=== PATIENT | male | born 1945 | race Caucasian/White ===

== ENCOUNTER 2020-08-10 08:39 | Observation (INO) ==
[2020-08-10] MEDS ORDERED: IOPAMIDOL 100 ML BOTTLE IV ONE (08:40)
[2020-08-10] MEDS ORDERED: PANTOPRAZOLE 40 MG VIAL IV ONE (08:47)
[2020-08-10] MEDS ORDERED: ONDANSETRON 4 MG/2 ML VIAL IV ONE (08:47)
[2020-08-10] MEDS ORDERED: 0.9 % SODIUM CHLORIDE 1,000 ML IV ONE ×2 (08:47→11:29)
--- NOTE | 2020-08-10 08:52 | Emergency Department Note ---
Nausea/Vomiting/Diarrhea HPI General Chief complaint: Nausea/Vomiting/Diarrhea Stated complaint: blood in vomit, nausea/vomiting Time Seen by Provider: 08/10/20 08:42 Source: patient Mode of arrival: ambulatory Limitations: no limitations History of Present Illness HPI Narrative: 75-year-old male presents by private vehicle chief complaint vomiting and diarrhea onset last night. He has had some blood in his emesis. Diarrhea has been watery and brown. Denies any black or bloody stools. He has significant discomfort in his upper abdomen. Denies chest pain denies any acute shortness of breath. Patient states he always feels somewhat short of breath. Patient is morbidly obese. Denies any blood thinners except for aspirin. Is also on medicine for hypertension hyperlipidemia and hypothyroidism. Related Data Home Medications Medication Instructions Recorded Confirmed CO Q-10 1 tab PO DAILY 05/22/19 08/10/20 Fish Oil Cap 2 cap PO BID 05/22/19 08/10/20 aspirin [Adult Low Dose Aspirin] 81 mg PO QDAY 12/04/19 08/10/20 Previous Rx's Medication Instructions Recorded colchicine 0.6 mg tablet 0.6 mg PO QDAY #20 tab 02/14/20 levothyroxine 25 mcg tablet 25 mcg PO DAILY #90 tab 04/22/20 losartan 100 1 tab PO QDAY #90 tab 04/22/20 mg-hydrochlorothiazide 12.5 mg tablet simvastatin 40 mg tablet 40 mg PO QDAY #90 tab 04/22/20 Allergies Allergy/AdvReac Type Severity Reaction Status Date / Time allopurinol Allergy Severe Rash Verified 08/10/20 08:42 Review of Systems ROS ROS Narrative: Narrative: All systems ED: reviewed and negative except as stated. Constitutional: Denies fever, chills and sweats Eyes: Denies vision change Cardiovascular: Denies chest pain Respiratory: Reports shortness of breath (Chronic) Gastrointestinal: Reports abdominal pain, vomiting, diarrhea and hematemesis Genitourinary: Denies dysuria, frequency, urgency and hematuria Musculoskeletal: Denies back pain and joint pain Integumentary: Denies rash Neurological: Denies headache and dizziness Psychiatric: Denies anxiety, suicidal thoughts and homicidal thoughts Endocrine: Denies polydipsia and polyuria Hematological/Lymphatic: Denies easy bleeding and easy bruising PFSH Narrative Patient History Narrative: Narrative: Medical/Surgical/Family History All Active Problems (Updated 08/10/20 @ 11:38 by Zhao Alvarez MD) Abdominal pain, vomiting, and diarrhea (Acute) Hematemesis (Acute) Acute dehydration (Acute) Pseudophakia (Chronic) Blepharitis (Chronic) Routine eye exam (Chronic ~09/16/16) Melanoma (Chronic ~01/2009) Perianal abscess (Chronic ~12/2007) Diverticulosis (Chronic) Hyperplastic colon polyp (Chronic) Hypothyroidism (Chronic) Hyperlipidemia (Chronic) Colon polyps (Chronic) Neoplasm of uncertain behavior of skin (Chronic) Abscess of anal and rectal regions (Chronic) Erectile dysfunction (Chronic) Diverticulosis of colon (Chronic) Malignant neoplasm of prostate (Chronic) Hypertension (Chronic) Encounter for preventative adult health care examination (Chronic) Idiopathic gout, left ankle and foot (Chronic) Constipation (Chronic) Urinary retention (Chronic) Urinary retention with incomplete bladder emptying (Chronic) Medical History (Updated 08/10/20 @ 11:38 by Zhao Alvarez MD) Abscess of anal and rectal regions Blepharitis Colon polyps Constipation Diverticulosis Diverticulosis of colon Encounter for preventative adult health care examination Erectile dysfunction Hyperlipidemia Hyperplastic colon polyp Hypertension Hypothyroidism Idiopathic gout, left ankle and foot Malignant neoplasm of prostate Melanoma (~01/2009) Left frontal Neoplasm of uncertain behavior of skin Perianal abscess (~12/2007) Pseudophakia Routine eye exam (~09/16/16) [facility] - Dr. Esposito - Return in 1 year for comprehensive dilated eye. Urinary retention Urinary retention with incomplete bladder emptying Surgical History History of colonoscopy (~08/2014) Diverticulosis noted. Hyperplastic polyps. Repeat in 2019 History of cystoscopy (~12/09/14) With dilation of bladder neck contracture. History of robot-assisted laparoscopic radical prostatectomy (~11/03/14) Dr. Samuel History of surgery Left Leg History of ventral hernia repair Social History Smoking Status: Former smoker Alcohol Intake Frequency: holiday/special occasion only Substance Use: does not use Exam Narrative Narrative: Constitutional: Awake alert no acute distress well-nourished well- developed HEENT: Normocephalic, atraumatic PERRLA, EOMI, oral mucosa moist, pharynx clear, Neck: Supple, no lymphadenopathy, no JVD Lungs: Breathing unlabored, lungs clear Cardiac: Regular rate and rhythm, normal distal pulses, GI: Soft epigastric tenderness nondistended no guarding no rebound Musculoskeletal: No tenderness, no deformities, no edema, full range of motion Neuro: Awake alert, cranial nerves II through XII grossly intact, no focal motor or sensory deficits Psychiatric: Normal mood and affect Skin: Warm dry no rash, cap refill less than 2 seconds General Limitations: no limitations Course Reevaluation(s) Reevaluation #1: Feels little better still nauseated. Still some epigastric discomfort. Discussed all ED findings and recommendation for observation the hospital patient is agreeable. Time: 11:35 Reevaluation #2: Discussed recommendations from stock shipper and hospitalist the patient states he vomited bright red blood on 3 separate occasions and would prefer to be observed in the hospital. Still feels little bit nauseated. Time: 12:28 Consultations Consultation #1: Case discussed with gastroenterology on-call, Dr. Melgoza, who feels patient likely had a gastroenteritis with some irritation and hematemesis and there is nothing to suggest the significant upper GI bleed at this point. Patient has normal hemoglobin. He recommended observation fluids checking stool studies and admission by the hospitalist. He would be agreeable to see the patient in consultation. Time: 11:57 Consultation #2: Case discussed with hospitalist, Dr. Sexton, who feels the patient can be discharged home and follow-up as an outpatient as long he is feeling better after second liter of fluids. Time: 13:16 Consultation #3: Discussed with hospitalist Dr. Sexton who agrees to come see the patient in the emergency department and discussed observation with the patient the patient does not feel comfortable going home at this time. Vital Signs Vital signs: Vital Signs Temperature 98.9 F 08/10/20 08:40 Pulse Rate 99 H 08/10/20 08:40 Respiratory Rate 24 H 08/10/20 08:40 Blood Pressure 149/82 08/10/20 08:40 Pulse Oximetry (%) 92 08/10/20 08:40 Temperature 98.9 F 08/10/20 08:40 Pulse Rate 90 08/10/20 13:02 Respiratory Rate 23 H 08/10/20 13:02 Blood Pressure 106/62 08/10/20 13:02 Pulse Oximetry (%) 96 08/10/20 13:02 [facility] MDM Narrative Medical decision making narrative: Narrative: Differential Diagnosis Differential Diagnosis: gastroenteritis GI bleed, colitis, dehydration, bowel obstruction Lab Data Result diagrams: 08/10/20 08:50 08/10/20 08:50 Labs: Lab Results 08/10/20 08/10/20 08/10/20 Range/Units 08:50 08:50 08:50 WBC 17.8 H (4.5-11.0) K/mcL RBC 5.35 (4.50-5.90) M/mcL Hgb 17.1 H (13.5-16.5) g/dL Hct 51.6 (41.0-55.0) % MCV 96.4 (80.0-100.0) fL MCH 32.0 (26.0-34.0) pg MCHC 33.1 (31.0-36.0) g/dL RDW 12.8 (11.5-14.5) % Plt Count 318 (140-440) K/mcL MPV 9.8 (7.4-10.4) fL Seg Neutrophils % 80 H (38-78) % Band Neutrophils % 7 (0-10) % Lymphocytes % 3 L (15-49) % Monocytes % (Manual) 8 (1-12) % Eosinophils % (Manual) 1 (0-7) % Myelocytes % 1 % Platelet Estimate Normal (Normal) RBC Morphology Normal (Normal) PT 13.0 (11.9-14.5) sec INR 0.9 (0.9-1.1) Sodium 138 (133-145) mmol/L Potassium 3.9 (3.3-5.1) mmol/L Chloride 102 (96-108) mmol/L Carbon Dioxide 18 L (22-30) mmol/L Anion Gap 18.0 H (8.0-16.0) BUN 30 H (8-23) mg/dL Creatinine 1.4 H (0.7-1.2) mg/dL POC Creatinine 1.3 H (0.6-1.2) mg/dL GFR Calculation 48 Glucose 153 H (70-105) mg/dL Calcium 8.9 (8.6-10.4) mg/dL Total Bilirubin 0.6 (0.1-1.0) mg/dL AST 18 (<40) U/L ALT 21 (<40) U/L Alkaline Phosphatase 91 (39-117) U/L Troponin T (<0.03) ng/mL NT-Pro-B Natriuret Pep 143.2 (<450.0) pg/mL Total Protein 7.1 (5.9-8.4) gm/dL Albumin 4.1 (3.2-5.2) gm/dL Globulin 3.0 (2.2-3.7) gm/dL Albumin/Globulin Ratio 1.4 (1.0-2.3) Lipase 31 (7-60) U/L 08/10/20 Range/Units 08:50 WBC (4.5-11.0) K/mcL RBC (4.50-5.90) M/mcL Hgb (13.5-16.5) g/dL Hct (41.0-55.0) % MCV (80.0-100.0) fL MCH (26.0-34.0) pg MCHC (31.0-36.0) g/dL RDW (11.5-14.5) % Plt Count (140-440) K/mcL MPV (7.4-10.4) fL Seg Neutrophils % (38-78) % Band Neutrophils % (0-10) % Lymphocytes % (15-49) % Monocytes % (Manual) (1-12) % Eosinophils % (Manual) (0-7) % Myelocytes % % Platelet Estimate (Normal) RBC Morphology (Normal) PT (11.9-14.5) sec INR (0.9-1.1) Sodium (133-145) mmol/L Potassium (3.3-5.1) mmol/L Chloride (96-108) mmol/L Carbon Dioxide (22-30) mmol/L Anion Gap (8.0-16.0) BUN (8-23) mg/dL Creatinine (0.7-1.2) mg/dL POC Creatinine (0.6-1.2) mg/dL GFR Calculation Glucose (70-105) mg/dL Calcium (8.6-10.4) mg/dL Total Bilirubin (0.1-1.0) mg/dL AST (<40) U/L ALT (<40) U/L Alkaline Phosphatase (39-117) U/L Troponin T < 0.01 (<0.03) ng/mL NT-Pro-B Natriuret Pep (<450.0) pg/mL Total Protein (5.9-8.4) gm/dL Albumin (3.2-5.2) gm/dL Globulin (2.2-3.7) gm/dL Albumin/Globulin Ratio (1.0-2.3) Lipase (7-60) U/L ED POC Tests ED POC Tests: KULDEEP - SARS Antigen Negative Radiology Data Radiology results reviewed: Yes I reviewed the patient's radiology results. Radiology results narrative: IMPRESSION: 1. No cause identified for GI blood loss. 2. 10 cm lobulated periumbilical hernia consisting only mesenteric fat. Small amount of edema seen in the inferior aspect of the hernia. Moderate left and small right inguinal hernias pain only mesenteric fat 3. Few sigmoid diverticuli, but no evidence of diverticulitis 4. Mild pancreatic atrophy in the head, neck and proximal body region. Interpreted and Authenticated by: Milo Lujan 08/10/20 Chest x-ray interpreted by radiologist showed no acute process EKG Data EKG #1: EKG attestation: Yes I reviewed and interpreted this EKG. and Yes There are no EKG findings of acute coronary syndrome EKG results narrative: EKG performed at 856 shows sinus rhythm rate 95 left axis deviation inferior Q waves normal intervals no ectopy nonspecific ST changes Discharge Plan Patient/Caregiver Discharge Instructions Pt seen by SECURITY PATROL OFFICER/PA only: No Clinical Impression: Abdominal pain, vomiting, and diarrhea, Hematemesis, Acute dehydration Patient Disposition: Xfer As Outpt/Obs ([facility]) Condition: Fair Follow up with: Alejandro Zimmerman MD [Primary Care Provider] - Prescriptions: No Action Fish Oil Cap 2 cap PO BID RF: 0 CO Q-10 1 tab PO DAILY RF: 0 colchicine [Colcrys] 0.6 mg tablet 0.6 mg PO QDAY Qty: 20 RF: 5 levothyroxine 25 mcg tablet 25 mcg PO DAILY Qty: 90 RF: 4 losartan-hydrochlorothiazide 100-12.5 mg tablet 1 tab PO QDAY Qty: 90 RF: 4 simvastatin 40 mg tablet 40 mg PO QDAY Qty: 90 RF: 4 aspirin [Adult Low Dose Aspirin] 81 mg Tablet,Delayed Release (Dr/Ec) 81 mg PO QDAY RF: 0
[2020-08-10 09:07] LABS: POC Creatinine 1.3 mg/dL (0.6-1.2)
[2020-08-10 09:36] LABS: Hematocrit 51.6 % (41.0-55.0); Hemoglobin 17.1 g/dL (13.5-16.5); Mean Cell Volume 96.4 fL (80.0-100.0); Mean Corpuscular HGB Conc 33.1 g/dL (31.0-36.0); Mean Platelet Volume 9.8 fL (7.4-10.4); Platelet Count 318 K/mcL (140-440); RBC 5.35 M/mcL (4.50-5.90); Red Cell Distribution Width 12.8 % (11.5-14.5); WBC 17.8 K/mcL (4.5-11.0)
[2020-08-10 09:55] LABS: INR 0.9 (0.9-1.1)
[2020-08-10 10:01] LABS: proBNP 143.2 pg/mL (<450.0)
[2020-08-10 10:21] LABS: ALT/SGPT 21 U/L (<40); AST/SGOT 18 U/L (<40); Albumin 4.1 gm/dL (3.2-5.2); Albumin/Globulin Ratio 1.4 (1.0-2.3); Alkaline Phosphatase 91 U/L (39-117); Bilirubin,Total 0.6 mg/dL (0.1-1.0); Blood Urea Nitrogen 30 mg/dL (8-23); Calcium 8.9 mg/dL (8.6-10.4); Carbon Dioxide 18 mmol/L (22-30); Chloride 102 mmol/L (96-108); Glomerular Filtration Rate 48; Glucose 153 mg/dL (70-105)
[2020-08-10 10:43] LABS: Band Neutrophils % 7 % (0-10); Eosinophils % (Manual) 1 % (0-7); Lymphocytes % 3 % (15-49); Monocytes % (Manual) 8 % (1-12); Myelocytes % 1 %; Platelet Estimate NORMAL (Normal); RBC Morphology NORMAL (Normal); Segmented Neutrophils % 80 % (38-78)
--- NOTE | 2020-08-10 11:03 | XRay Report ---
CLINICAL INFORMATION: dyspnea COMPARISON: None. FINDINGS: The heart is mildly enlarged. Mediastinum and pulmonary vessels are unremarkable. Prominent fat pad seen in the cardiac apex region lungs are clear. No effusion IMPRESSION: Negative Interpreted and Authenticated by: Milo Lujan 08/10/20
--- NOTE | 2020-08-10 11:03 | Cat Scan Report ---
CLINICAL INFORMATION: Abdominal pain and vomiting blood COMPARISON: Pelvic CT 05/26/2008 TECHNIQUE: Following enteric contrast, 80 cc of Isovue-370 were injected intravenously, and 60 seconds later, 0.625 mm helical slices were obtained from the mid heart through the subtrochanteric regions. Following reconstruction, 2.5 mm sagittal, coronal and axial reformatted images were processed and reviewed at bone, lung and soft tissue windows. Five minutes later, 0.625 mm helical slices were obtained from the mid heart through the kidneys and viewed at soft tissue windows.The exam was performed using radiation dose optimization techniques including, but not limited to, automated exposure control, adjustment of the mA and/or kV according to patient size and use of iterative reconstruction technique. FINDINGS: Lung bases show a tiny 2 mm nodule in the medial basilar segment right lower lobe on image 14. It should be considered insignificant. There is minimal scattered scarring and/or atelectasis. There are no effusions. The visualized heart is grossly normal in size. Abdominal images show the gallbladder and bile ducts, liver, both adrenal glands, spleen and aorta are normal in size configuration and attenuation without focal lesion. There is mild pancreatic atrophy with parenchymal fat replacement-particularly in the head neck and proximal body. Simple parapelvic cysts are seen in both kidneys-no significant renal abnormality. There is no free air, free fluid or adenopathy Pelvic images show prostatectomy changes. The urinary bladder is unremarkable. Few sigmoid diverticuli appreciated no evidence of diverticulitis. The remaining colon, appendix small bowel and stomach are normal. No cause identified for GI bleeding on the basis of this particular study. 10 cm multilobulated periumbilical hernia, consisting only mesenteric fat, is appreciated. There is a small amount of edema in the peripheral aspect of the hernia sac inferiorly. Moderate left and small right inguinal hernias containing only fat. Bone windows show no focal osseous abnormality. IMPRESSION: 1. No cause identified for GI blood loss. 2. 10 cm lobulated periumbilical hernia consisting only mesenteric fat. Small amount of edema seen in the inferior aspect of the hernia. Moderate left and small right inguinal hernias pain only mesenteric fat 3. Few sigmoid diverticuli, but no evidence of diverticulitis 4. Mild pancreatic atrophy in the head, neck and proximal body region. Interpreted and Authenticated by: Milo Lujan 08/10/20
--- NOTE | 2020-08-10 13:35 | Internal Med History&Physical ---
HPI History of Present Illness Patient information: Note initiated : 08/10/20 at 1:28 pm Service Date, if different from initiated Date: [] Patient: Lev Strong a 75 y/o M admitted on for Blood In Vomit, N/V. Chief Complaint: [] History of present illness: Mr. Strong is a 75 year old M Patient presents the ED with nausea vomiting diarrhea. Patient had leg of araiza last night and feels he had some indigestion in his stomach but otherwise was not too concerned. However around 130 when he got up to go to bed he started to feel ill start have nausea vomiting and had multiple episodes through the morning and started to have diarrhea as well his emesis became bright red blood. In the ED he was evaluated he had hemoglobin of 17 and it appeared to be dry. Had a leukocytosis but was afebrile. Case was discussed with machine pecan picker Dr. Bender who felt it was inflammation from gastroenteritis did not have any acute concerns and felt the patient did not need any endoscopy evaluation. Patient concerned about going home given the severity of his symptoms last night and desired to stay as an observation patient. Patient also describes pyrosis. Review of Systems: Pertinent positives as above. Denies headache/fever/chills/chest or abdominal pain/cough/dyspnea/. System reviewed negative PFSH PFSH All Active Problems (Updated 08/10/20 @ 11:38 by Zhao Alvarez MD) Abdominal pain, vomiting, and diarrhea (Acute) Hematemesis (Acute) Acute dehydration (Acute) Pseudophakia (Chronic) Blepharitis (Chronic) Routine eye exam (Chronic ~09/16/16) Melanoma (Chronic ~01/2009) Perianal abscess (Chronic ~12/2007) Diverticulosis (Chronic) Hyperplastic colon polyp (Chronic) Hypothyroidism (Chronic) Hyperlipidemia (Chronic) Colon polyps (Chronic) Neoplasm of uncertain behavior of skin (Chronic) Abscess of anal and rectal regions (Chronic) Erectile dysfunction (Chronic) Diverticulosis of colon (Chronic) Malignant neoplasm of prostate (Chronic) Hypertension (Chronic) Encounter for preventative adult health care examination (Chronic) Idiopathic gout, left ankle and foot (Chronic) Constipation (Chronic) Urinary retention (Chronic) Urinary retention with incomplete bladder emptying (Chronic) Medical History (Updated 08/10/20 @ 11:38 by Zhao Alvarez MD) Abscess of anal and rectal regions Blepharitis Colon polyps Constipation Diverticulosis Diverticulosis of colon Encounter for preventative adult health care examination Erectile dysfunction Hyperlipidemia Hyperplastic colon polyp Hypertension Hypothyroidism Idiopathic gout, left ankle and foot Malignant neoplasm of prostate Melanoma (~01/2009) Left frontal Neoplasm of uncertain behavior of skin Perianal abscess (~12/2007) Pseudophakia Routine eye exam (~09/16/16) [facility] - Dr. Esposito - Return in 1 year for comprehensive dilated eye. Urinary retention Urinary retention with incomplete bladder emptying Surgical History History of colonoscopy (~08/2014) Diverticulosis noted. Hyperplastic polyps. Repeat in 2019 History of cystoscopy (~12/09/14) With dilation of bladder neck contracture. History of robot-assisted laparoscopic radical prostatectomy (~11/03/14) Dr. Samuel History of surgery Left Leg History of ventral hernia repair Social History marital status: occupational status: retired alcohol intake frequency: holiday/special occasion only substance use type: does not use MEDS/ALLERGIES Home Medications and Allergies Home Medications Medication Instructions Recorded Confirmed Type CO Q-10 1 tab PO DAILY 05/22/19 08/10/20 History Fish Oil Cap 2 cap PO BID 05/22/19 08/10/20 History aspirin [Adult Low Dose Aspirin] 81 mg PO QDAY 12/04/19 08/10/20 History colchicine 0.6 mg tablet 0.6 mg PO QDAY #20 tab 02/14/20 08/10/20 Rx levothyroxine 25 mcg tablet 25 mcg PO DAILY #90 tab 04/22/20 08/10/20 Rx losartan 100 1 tab PO QDAY #90 tab 04/22/20 08/10/20 Rx mg-hydrochlorothiazide 12.5 mg tablet simvastatin 40 mg tablet 40 mg PO QDAY #90 tab 04/22/20 08/10/20 Rx Allergies Allergy/AdvReac Type Severity Reaction Status Date / Time allopurinol Allergy Severe Rash Verified 08/10/20 08:42 EXAM Constitutional Vitals: Temp Pulse Resp BP Pulse Ox 98.9 F 98 H 21 107/72 98 08/10/20 08:40 08/10/20 13:17 08/10/20 13:17 08/10/20 13:17 08/10/20 13:17 Exam: General: Alert, Awake, No acute Distress, obese Eyes/N/T: EOMI, PERRL, dry MM Head/Neck: neck supple, normocephalic atraumatic CV: RRR, No murmurs, normal s1/s2 Pulm: Clear b/l, no wheezing/rhonchi/rales Abd: soft, nontender, +BS x4 Ext: no clubbing/cyanosis/edema Neuro: Alert, no focal deficits, moves all extremities, CN 2-12 grossly intact, symmetrical strength b/l upper/lower, sensations intact b/l upper/lower Skin: warm/dry DATA Data Completed and Pending Labs: Labs from last 24 hours 08/10/20 08/10/20 08/10/20 08:50 08:50 08:50 WBC RBC Hgb Hct MCV MCH MCHC RDW Plt Count MPV Seg Neutrophils % Band Neutrophils % Lymphocytes % Monocytes % (Manual) Eosinophils % (Manual) Myelocytes % Platelet Estimate RBC Morphology PT 13.0 INR 0.9 APTT Pending Sodium Potassium Chloride Carbon Dioxide Anion Gap BUN Creatinine POC Creatinine GFR Calculation Glucose Calcium Total Bilirubin AST ALT Alkaline Phosphatase Troponin T < 0.01 NT-Pro-B Natriuret Pep Total Protein Albumin Globulin Albumin/Globulin Ratio Lipase 08/10/20 08/10/20 08:50 08:50 WBC 17.8 H RBC 5.35 Hgb 17.1 H Hct 51.6 MCV 96.4 MCH 32.0 MCHC 33.1 RDW 12.8 Plt Count 318 MPV 9.8 Seg Neutrophils % 80 H Band Neutrophils % 7 Lymphocytes % 3 L Monocytes % (Manual) 8 Eosinophils % (Manual) 1 Myelocytes % 1 Platelet Estimate Normal RBC Morphology Normal PT INR APTT Sodium 138 Potassium 3.9 Chloride 102 Carbon Dioxide 18 L Anion Gap 18.0 H BUN 30 H Creatinine 1.4 H POC Creatinine 1.3 H GFR Calculation 48 Glucose 153 H Calcium 8.9 Total Bilirubin 0.6 AST 18 ALT 21 Alkaline Phosphatase 91 Troponin T NT-Pro-B Natriuret Pep 143.2 Total Protein 7.1 Albumin 4.1 Globulin 3.0 Albumin/Globulin Ratio 1.4 Lipase 31 A/P Narrative A/P Narrative: A: *N/V/D/pyrosis w/hematemesis: Likely 2/2 acute gastroenteritis -Case discussed with Dr. 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
[2020-08-10] MEDS ORDERED: METOPROLOL TARTRATE 25 MG TABLET PO ONE ×2 (14:58→15:18)
--- NOTE | 2020-08-10 15:01 | Discharge Summary ---
Discharge Provider Provider Patient information: Note initiated : 08/10/20 at 3:00 pm Service Date, if different from initiated Date: [] Patient: Lev Strong 75 y/o M admitted on for Blood In Vomit, N/V. Chief Complaint: [] Primary care physician: Alejandro Zimmerman MD Consults: 08/10/20 Consult to Physician [CONS] Stat Comment: Consulting Provider: Gael Sexton Reason For Exam: Physician to Consult Consult to Physician [CONS] Stat Comment: Consulting Provider: Lexx Melgoza Reason For Exam: Physician to Consult Discharge Meds Discharge Medications Home Medications CO Q-10 1 tab PO DAILY 05/22/19 [History Confirmed 08/10/20 Last Taken Unknown] Fish Oil Cap 2 cap PO BID 05/22/19 [History Confirmed 08/10/20 Last Taken Unknown] aspirin [Adult Low Dose Aspirin] 81 mg PO QDAY 12/04/19 [History Confirmed 08/10/20 Last Taken Unknown] colchicine 0.6 mg tablet 0.6 mg PO QDAY #20 tab 02/14/20 [Rx Confirmed 08/10/20 Last Taken Unknown] levothyroxine 25 mcg tablet 25 mcg PO DAILY #90 tab 04/22/20 [Rx Confirmed 08/10/20 Last Taken Unknown] losartan 100 mg-hydrochlorothiazide 12.5 mg tablet 1 tab PO QDAY #90 tab 04/22/20 [Rx Confirmed 08/10/20 Last Taken Unknown] simvastatin 40 mg tablet 40 mg PO QDAY #90 tab 04/22/20 [Rx Confirmed 08/10/20 Last Taken Unknown] COURSE Hospital Course Hospital course: History of present illness: Mr. Strong is a 75 year old M Patient presents the ED with nausea vomiting diarrhea. Patient had leg of araiza last night and feels he had some indigestion in his stomach but otherwise was not too concerned. However around 130 when he got up to go to bed he started to feel ill start have nausea vomiting and had multiple episodes through the morning and started to have diarrhea as well his emesis became bright red blood. In the ED he was evaluated he had hemoglobin of 17 and it appeared to be dry. Had a leukocytosis but was afebrile. Case was discussed with ambulette driver Dr. Bender who felt it was inflammation from gastroenteritis did not have any acute concerns and felt the patient did not need any endoscopy evaluation. Patient concerned about going home given the severity of his symptoms last night and desired to stay as an observation patient. Patient also describes pyrosis. A: *N/V/D/pyrosis w/hematemesis: Likely 2/2 acute gastroenteritis -Case discussed with Dr. 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 Time Spent with Patient Time attestation: Total time spent providing and/or coordinating discharge services: Time spent: Greater than 30 minutes EXAM Constitutional Vitals: Temp Pulse Resp BP Pulse Ox 98.9 F 60 17 117/79 92 08/10/20 08:40 08/10/20 14:47 08/10/20 14:47 08/10/20 14:32 08/10/20 14:47 Discharge Data Data Completed and Pending Labs on day of discharge: Labs from last 24 hours 08/10/20 08/10/20 08/10/20 08:50 08:50 08:50 WBC RBC Hgb Hct MCV MCH MCHC RDW Plt Count MPV Seg Neutrophils % Band Neutrophils % Lymphocytes % Monocytes % (Manual) Eosinophils % (Manual) Myelocytes % Platelet Estimate RBC Morphology PT 13.0 INR 0.9 APTT Pending Sodium Potassium Chloride Carbon Dioxide Anion Gap BUN Creatinine POC Creatinine GFR Calculation Glucose Calcium Total Bilirubin AST ALT Alkaline Phosphatase Troponin T < 0.01 NT-Pro-B Natriuret Pep Total Protein Albumin Globulin Albumin/Globulin Ratio Lipase 08/10/20 08/10/20 08:50 08:50 WBC 17.8 H RBC 5.35 Hgb 17.1 H Hct 51.6 MCV 96.4 MCH 32.0 MCHC 33.1 RDW 12.8 Plt Count 318 MPV 9.8 Seg Neutrophils % 80 H Band Neutrophils % 7 Lymphocytes % 3 L Monocytes % (Manual) 8 Eosinophils % (Manual) 1 Myelocytes % 1 Platelet Estimate Normal RBC Morphology Normal PT INR APTT Sodium 138 Potassium 3.9 Chloride 102 Carbon Dioxide 18 L Anion Gap 18.0 H BUN 30 H Creatinine 1.4 H POC Creatinine 1.3 H GFR Calculation 48 Glucose 153 H Calcium 8.9 Total Bilirubin 0.6 AST 18 ALT 21 Alkaline Phosphatase 91 Troponin T NT-Pro-B Natriuret Pep 143.2 Total Protein 7.1 Albumin 4.1 Globulin 3.0 Albumin/Globulin Ratio 1.4 Lipase 31 Discharge Plan Patient/Caregiver Discharge Instructions Pt seen by LIBRARY CIRCULATION CLERK/PA only: No Clinical Impression: Abdominal pain, vomiting, and diarrhea, Hematemesis, Acute dehydration Activity: increase activity as tolerated Patient Disposition: Xfer As Outpt/Obs ([facility]) Condition: Fair Follow up with: Alejandro Zimmerman MD [Primary Care Provider] - Prescriptions: No Action Fish Oil Cap 2 cap PO BID RF: 0 CO Q-10 1 tab PO DAILY RF: 0 colchicine [Colcrys] 0.6 mg tablet 0.6 mg PO QDAY Qty: 20 RF: 5 levothyroxine 25 mcg tablet 25 mcg PO DAILY Qty: 90 RF: 4 losartan-hydrochlorothiazide 100-12.5 mg tablet 1 tab PO QDAY Qty: 90 RF: 4 simvastatin 40 mg tablet 40 mg PO QDAY Qty: 90 RF: 4 aspirin [Adult Low Dose Aspirin] 81 mg Tablet,Delayed Release (Dr/Ec) 81 mg PO QDAY RF: 0
[2020-08-10] MEDS ORDERED: POTASSIUM CHLORIDE 20 MEQ TABLET PO PRN ×2 (15:18)
[2020-08-10] MEDS ORDERED: POTASSIUM CHLORIDE 40 MEQ in DEXTROSE 5% IN WATER 500 ML IV PRN (15:18)
[2020-08-10] MEDS ORDERED: MAGNESIUM SULFATE 2 GM/50 ML BAG IV PRN (15:18)
[2020-08-10] MEDS ORDERED: POLYETHYLENE GLYCOL 3350 17 GM PACKET PO PRN (15:18)
[2020-08-10] MEDS ORDERED: diphenhydrAMINE 50 MG/ML VIAL IV ONE (15:18)
[2020-08-10] MEDS ORDERED: PROMETHAZINE 25 MG/ML VIAL IV PRN (15:18)
[2020-08-10] MEDS ORDERED: IPRATROPIUM/ALBUTEROL 3 ML AMPUL.NEB NEB PRN (15:18)
[2020-08-10] MEDS ORDERED: ACETAMINOPHEN 325 MG TABLET PO PRN (15:18)
[2020-08-10] MEDS ORDERED: diphenhydrAMINE 50 MG/ML VIAL IV PRN (15:18)
[2020-08-10] MEDS ORDERED: 0.9 % SODIUM CHLORIDE 1,000 ML IV SCH (15:18)
[2020-08-10] MEDS ORDERED: METOCLOPRAMIDE 10 MG/2 ML VIAL IV PRN (15:18)
[2020-08-10] MEDS ORDERED: ONDANSETRON 4 MG/2 ML VIAL IV PRN (15:18)
[2020-08-10] MEDS ORDERED: COLCHICINE 0.6 MG CAPSULE PO PRN (15:45)
[2020-08-10] MEDS: 0.9 % SODIUM CHLORIDE 10 ML SYRINGE IV SCH ×2 (16:14→20:10)
--- NOTE | 2020-08-10 20:09 | Discharge Summary ---
Discharge Provider Provider Patient information: Note initiated : 08/10/20 at 8:08 pm Service Date, if different from initiated Date: [] Patient: Lev Strong 75 y/o M admitted on 08/10/20 for Blood In Vomit, N/V. Chief Complaint: [] Date of admission: 08/10/20 15:05 Discharge date: 08/11/20 Primary care physician: Alejandro Zimmerman MD Consults: 08/10/20 Consult to Physician [CONS] Stat Comment: Consulting Provider: Gael Sexton Reason For Exam: Physician to Consult Consult to Physician [CONS] Stat Comment: Consulting Provider: Lexx Melgoza Reason For Exam: Physician to Consult Discharge Meds Discharge Medications Home Medications CO Q-10 1 tab PO DAILY 05/22/19 [History Confirmed 08/10/20 Last Taken Unknown] Fish Oil Cap 2 cap PO BID 05/22/19 [History Confirmed 08/10/20 Last Taken Unknown] aspirin [Adult Low Dose Aspirin] 81 mg PO QDAY 12/04/19 [History Confirmed 08/10/20 Last Taken Unknown] colchicine 0.6 mg tablet 0.6 mg PO QDAY #20 tab 02/14/20 [Rx Confirmed 08/10/20 Last Taken Unknown] levothyroxine 25 mcg tablet 25 mcg PO DAILY #90 tab 04/22/20 [Rx Confirmed 08/10/20 Last Taken Unknown] losartan 100 mg-hydrochlorothiazide 12.5 mg tablet 1 tab PO QDAY #90 tab 04/22/20 [Rx Confirmed 08/10/20 Last Taken Unknown] simvastatin 40 mg tablet 40 mg PO QDAY #90 tab 04/22/20 [Rx Confirmed 08/10/20 Last Taken Unknown] pantoprazole [Protonix] 40 mg PO QDAY #50 tab 08/10/20 [Rx Last Taken Unknown] COURSE Hospital Course Hospital course: History of present illness: Mr. Strong is a 75 year old M Patient presents the ED with nausea vomiting diarrhea. Patient had leg of araiza last night and feels he had some indigestion in his stomach but otherwise was not too concerned. However around 130 when he got up to go to bed he started to feel ill start have nausea vomiting and had multiple episodes through the morning and started to have diarrhea as well his emesis became bright red blood. In the ED he was evaluated he had hemoglobin of 17 and it appeared to be dry. Had a leukocytosis but was afebrile. Case was discussed with auto service representative Dr. Bender who felt it was inflammation from gastroenteritis did not have any acute concerns and felt the patient did not need any endoscopy evaluation. Patient concerned about going home given the severity of his symptoms last night and desired to stay as an observation patient. Patient also describes pyrosis. 08/11 Doing well hemoglobin stable no further hematemesis. Leukocytosis likely reactive resolved without antibiotics. Discussed with him referral sent to pulmonology for sleep study. A: *N/V/D/pyrosis w/hematemesis: Likely 2/2 acute gastroenteritis -Case discussed with Dr. 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: It was noted that he did have some desaturations when he would fall asleep Discharge diagnosis: Neuritis with nausea vomiting and some hematemesis NEREYDA Time Spent with Patient Time attestation: Total time spent providing and/or coordinating discharge services: Time spent: Greater than 30 minutes EXAM Constitutional Vitals: Temp Pulse Resp BP Pulse Ox 98.4 F 83 20 112/70 95 08/10/20 19:02 08/10/20 19:02 08/10/20 19:02 08/10/20 19:02 08/10/20 19:02 Discharge Data Data Completed and Pending Labs on day of discharge: Labs from last 24 hours 08/10/20 08/10/20 08/10/20 08:50 08:50 08:50 WBC RBC Hgb Hct MCV MCH MCHC RDW Plt Count MPV Seg Neutrophils % Band Neutrophils % Lymphocytes % Monocytes % (Manual) Eosinophils % (Manual) Myelocytes % Platelet Estimate RBC Morphology PT 13.0 INR 0.9 APTT TNP Sodium Potassium Chloride Carbon Dioxide Anion Gap BUN Creatinine POC Creatinine GFR Calculation Glucose Calcium Total Bilirubin AST ALT Alkaline Phosphatase Troponin T < 0.01 NT-Pro-B Natriuret Pep Total Protein Albumin Globulin Albumin/Globulin Ratio Lipase 08/10/20 08/10/20 08:50 08:50 WBC 17.8 H RBC 5.35 Hgb 17.1 H Hct 51.6 MCV 96.4 MCH 32.0 MCHC 33.1 RDW 12.8 Plt Count 318 MPV 9.8 Seg Neutrophils % 80 H Band Neutrophils % 7 Lymphocytes % 3 L Monocytes % (Manual) 8 Eosinophils % (Manual) 1 Myelocytes % 1 Platelet Estimate Normal RBC Morphology Normal PT INR APTT Sodium 138 Potassium 3.9 Chloride 102 Carbon Dioxide 18 L Anion Gap 18.0 H BUN 30 H Creatinine 1.4 H POC Creatinine 1.3 H GFR Calculation 48 Glucose 153 H Calcium 8.9 Total Bilirubin 0.6 AST 18 ALT 21 Alkaline Phosphatase 91 Troponin T NT-Pro-B Natriuret Pep 143.2 Total Protein 7.1 Albumin 4.1 Globulin 3.0 Albumin/Globulin Ratio 1.4 Lipase 31 Discharge Plan Patient/Caregiver Discharge Instructions Activity: increase activity as tolerated Diet: Regular Diet Prescriptions: New pantoprazole [Protonix] 40 mg tablet,delayed release (DR/EC) 40 mg PO QDAY Qty: 50 RF: 0 Continued Fish Oil Cap 2 cap PO BID RF: 0 CO Q-10 1 tab PO DAILY RF: 0 colchicine [Colcrys] 0.6 mg tablet 0.6 mg PO QDAY Qty: 20 RF: 5 levothyroxine 25 mcg tablet 25 mcg PO DAILY Qty: 90 RF: 4 losartan-hydrochlorothiazide 100-12.5 mg tablet 1 tab PO QDAY Qty: 90 RF: 4 simvastatin 40 mg tablet 40 mg PO QDAY Qty: 90 RF: 4 aspirin [Adult Low Dose Aspirin] 81 mg Tablet,Delayed Release (Dr/Ec) 81 mg PO QDAY RF: 0 Follow Up Plan Follow up with: Alejandro Zimmerman MD [Primary Care Provider] - Patient Disposition: Home, Self-Care Prognosis: Fair Overall status at discharge: patient is progressing back to baseline Discharge Orders: Discharge Order (Routine); Ordered 08/11/20 Ordered By: Gael Sexton [facility] VTE Deep Vein Thrombosis/Pulmonary Embolism Present on Admission: No
[2020-08-10] MEDS: PANTOPRAZOLE 40 MG TABLET PO SCH (20:10)
[2020-08-11 03:59] LABS: Appearance,Urine CLEAR (Clear); Bacteria,Urine 0 /hpf (0); Bilirubin,Urine Negative (Negative); Color,Urine YELLOW; Culture Indicated,Urine yes; Glucose,Urine (UA) Negative (Negative); Ketones,Urine Negative (Negative); Leukocyte Esterase,Urine 75 /ug (Negative); Nitrate,Urine Negative (Negative); Protein,Urine Negative (Negative); Specific Gravity,Urine 1.035 (1.000-1.035); Urine Blood Negative (Negative); Urine RBC < 1 /hpf (0-3); Urine Squamous Epithelial Cell 3 /hpf (0-4); Urine WBC 18 /hpf (0-4); Urobilinogen,Urine Negative
[2020-08-11] MEDS: 0.9 % SODIUM CHLORIDE 10 ML SYRINGE IV SCH (04:34)
[2020-08-11 07:45] LABS: Basophils # (Auto) 0.02 K/mcL (0.00-0.20); Basophils % (Auto) 0.2 % (0.0-2.0); Eosinophils # (Auto) 0.43 K/mcL (0.00-0.70); Eosinophils % (Auto) 4.7 % (0.0-7.0); Hematocrit 45.7 % (41.0-55.0); Hemoglobin 14.4 g/dL (13.5-16.5); Lymphocytes # (Auto) 1.62 K/mcL (1.50-4.80); Lymphocytes % (Auto) 17.8 % (15.0-49.0); Mean Cell Volume 100.4 fL (80.0-100.0); Mean Corpuscular HGB Conc 31.5 g/dL (31.0-36.0); Mean Platelet Volume 9.7 fL (7.4-10.4); Monocytes # (Auto) 0.97 K/mcL (0.10-0.90); Monocytes % (Auto) 10.7 % (1.0-12.0); Neutrophils % (Auto) 66.6 % (38.0-78.0); Platelet Count 256 K/mcL (140-440); RBC 4.55 M/mcL (4.50-5.90); Red Cell Distribution Width 13.5 % (11.5-14.5); WBC 9.1 K/mcL (4.5-11.0)
[2020-08-11 08:17] LABS: ALT/SGPT 12 U/L (<40); AST/SGOT 12 U/L (<40); Albumin 3.3 gm/dL (3.2-5.2); Albumin/Globulin Ratio 1.3 (1.0-2.3); Alkaline Phosphatase 69 U/L (39-117); Bilirubin,Direct < 0.2 mg/dL (0-0.3); Bilirubin,Total 0.5 mg/dL (0.1-1.0); Blood Urea Nitrogen 25 mg/dL (8-23); Calcium 7.7 mg/dL (8.6-10.4); Carbon Dioxide 21 mmol/L (22-30); Chloride 110 mmol/L (96-108); Globulin 2.5 gm/dL (2.2-3.7); Glomerular Filtration Rate 58; Glucose 74 mg/dL (70-105); Lactate Dehydrogenase 195 U/L (135-225); Phosphorous 2.4 mg/dL (2.5-4.5); Triglycerides 175 mg/dL (<150); Uric Acid 7.9 mg/dL (2.5-8.0)
[2020-08-11] MEDS: PANTOPRAZOLE 40 MG TABLET PO SCH (08:32)
[2020-08-11] MEDS ORDERED: SIMVASTATIN 40 MG TABLET PO SCH (09:00)
[2020-08-11] MEDS ORDERED: HYDROCHLOROTHIAZIDE 12.5 MG CAPSULE PO SCH (09:00)
[2020-08-11] MEDS ORDERED: LEVOTHYROXINE 25 MCG TABLET PO SCH (09:00)
[2020-08-11] MEDS ORDERED: LOSARTAN 50 MG TABLET PO SCH (09:00)
[2020-08-11] MEDS ORDERED: NON FORMULARY MEDICATION 1 DOSE MISCELL (Losartan-Hydrochlorothiazide 100-12.5 mg tablet) PO SCH (09:00)
== END 2020-08-11 13:00 | disposition home or self-care (01) ==
LOC: ED 08:39 → INTOOBSV 15:05 → MEDSUR 15:05
PROVIDERS: ADMIT Internal Medicine; ATTEND Internal Medicine